=== PATIENT | female | born 1935 | race Caucasian/White ===

== ENCOUNTER 2018-03-30 09:24 | Emergency (ER) | payer MEDICARE, OTHER ==
[2018-03-30] MEDS ORDERED: Sodium Chloride 0.9% 10 ML Syringe FLUSH PRN (09:41)
[2018-03-30] MEDS ORDERED: Aspirin 81 MG Tab.Chew PO ONE (09:48)
--- NOTE | 2018-03-30 10:53 | CR ---
Chest: Portable view of the chest was obtained. Comparison: Prior chest x-ray of 01/22/16. Heart size slightly enlarged but accentuated by portable technique. Mild right basilar atelectasis is seen. Lungs are clear with no acute parenchymal change. Scoliosis and degenerative change are noted within the spine. Impression: 1. Slight right basilar atelectasis. 2. Nothing acute is appreciated on portable chest x-ray. Diagnostic code #2
--- NOTE | 2018-03-30 11:07 | EDM.PDOC ---
ED HPI GENERAL MEDICAL PROBLEM - General Chief Complaint: Chest Pain Stated Complaint: CHEST PAIN/SENT FROM [place] Time Seen by Provider: 03/30/18 09:38 Source of Information: Reports: Patient History Limitations: Reports: No Limitations - History of Present Illness INITIAL COMMENTS - FREE TEXT/NARRATIVE: The patient presents with chest pain. This started on Friday. It is a constant heaviness. Nothing makes it worse or better. She did not injure her chest. She was cleaning up trees this weekend when it started. She has no shortness of breath. She has no fever, chills, cough, chest pain, abdominal pain, nausea or vomiting. She has no history of an ND, nausea or vomiting. Onset: Gradual Duration: Day(s): Location: Reports: Chest Quality: Reports: Other (Heaviness) Severity: Moderate Improves with: Reports: None Worsens with: Reports: None Associated Symptoms: Reports: Chest Pain. Denies: Confusion, Fever/Chills, Headaches, Nausea/Vomiting, Shortness of Breath Chest Pain Score (Numeric/FACES): 7 - Related Data Allergies Allergy/AdvReac Type Severity Reaction Status Date / Time acetaminophen [From Tylenol] Allergy Nausea Verified 03/30/18 09:43 tetanus and diphtheria Allergy Cannot Verified 03/30/18 09:43 toxoids Remember [tetanus & diphtheria toxoids] Home Meds: Home Meds Aspirin [Halfprin] 81 mg PO BEDTIME 01/22/16 [History] amLODIPine Besylate [Amlodipine Besylate] 5 mg PO BEDTIME 03/30/18 [History] Past Medical History HEENT History: Reports: Impaired Vision Other HEENT History: Wears glasses Cardiovascular History: Reports: Hypertension Genitourinary History: Reports: UTI, Recurrent [employer] History: Reports: Musculoskeletal History: Reports: Arthritis - Past Surgical History GI Surgical History: Reports: Cholecystectomy Social & Family History - Tobacco Use Smoking Status *Q: Never Smoker - Caffeine Use Caffeine Use: Reports: Coffee - Recreational Drug Use Recreational Drug Use: No ED ROS GENERAL - Review of Systems Review Of Systems: See Below Constitutional: Reports: No Symptoms HEENT: Reports: No Symptoms Respiratory: Reports: No Symptoms Cardiovascular: Reports: Chest Pain. Denies: Edema Endocrine: Reports: No Symptoms GI/Abdominal: Reports: No Symptoms : Reports: No Symptoms Musculoskeletal: Reports: No Symptoms Skin: Reports: No Symptoms ED EXAM, GENERAL - Physical Exam Exam: See Below Exam Limited By: No Limitations General Appearance: Alert, No Apparent Distress Ears: Normal External Exam Nose: Normal Inspection Head: Atraumatic, Normocephalic Neck: Normal Inspection Respiratory/Chest: No Respiratory Distress, Lungs Clear, Normal Breath Sounds Cardiovascular: Regular Rate, Rhythm, No Edema, No Murmur GI/Abdominal: Soft, Non-Tender, No Organomegaly, No Mass Back Exam: Normal Inspection Extremities: Normal Inspection Neurological: Alert, Oriented, No Motor/Sensory Deficits Course - Vital Signs Last Recorded V/S: Last Vital Signs Temp 97.0 F 03/30/18 09:32 Pulse 68 03/30/18 09:32 Resp 19 03/30/18 09:32 BP 158/63 H 03/30/18 09:32 Pulse Ox 99 03/30/18 09:41 - Orders/Labs/Meds Orders: Active Orders 24 hr Category Date Time Status Cardiac Monitoring [RC] . DIRECTED Care 03/30/18 09:41 Active EKG Documentation Completion [RC] STAT Care 03/30/18 09:30 Active Oxygen Therapy [RC] PRN Care 03/30/18 09:41 Active Peripheral IV Care [RC] . DIRECTED Care 03/30/18 09:42 Active Sodium Chloride 0.9% [Saline Flush] Med 03/30/18 09:41 Active 10 ml FLUSH ASDIRECTED PRN Peripheral IV Insertion Adult [OM.PC] Stat Oth 03/30/18 09:41 Ordered Medication Orders Sodium Chloride (Saline Flush) 10 ml FLUSH ASDIRECTED PRN PRN Reason: Keep Vein Open Last Admin: 03/30/18 09:54 Dose: 10 ml Labs: Laboratory Tests 03/30/18 03/30/18 Range/Units 09:45 09:45 WBC 7.12 (3.98-10.04) K/mm3 RBC 4.34 (3.98-5.22) M/mm3 Hgb 13.9 (11.2-15.7) gm/L Hct 43.0 (34.1-44.9) % MCV 99.1 H (79.4-94.8) fl MCH 32.0 (25.6-32.2) pg MCHC 32.3 (32.2-35.5) g/dl RDW Std Deviation 48.1 H (36.4-46.3) fL Plt Count 232 (182-369) K/mm3 MPV 10.2 (9.4-12.3) fl Neut % (Auto) 62.5 (34.0-71.1) % Lymph % (Auto) 26.4 (19.3-51.7) % [place] % (Auto) 8.0 (4.7-12.5) % Eos % (Auto) 2.4 (0.7-5.8) Baso % (Auto) 0.6 (0.1-1.2) % Neut # (Auto) 4.45 (1.56-6.13) K/mm3 Lymph # (Auto) 1.88 (1.18-3.74) K/mm3 [place] # (Auto) 0.57 H (0.24-0.36) K/mm3 Eos # (Auto) 0.17 (0.04-0.36) K/mm3 Baso # (Auto) 0.04 (0.01-0.08) K/mm3 Sodium 141 (136-145) mEq/L Potassium 4.0 (3.5-5.1) mEq/L Chloride 104 (98-107) mEq/L Carbon Dioxide 28 (21-32) mEq/L Anion Gap 13.0 (5-15) BUN 17 (7-18) mg/dL Creatinine 0.9 (0.55-1.02) mg/dL Est Cr Clr Drug Dosing 35.11 mL/min Estimated GFR (MDRD) 60 (>60) mL/min BUN/Creatinine Ratio 18.9 H (14-18) Glucose 99 (83-115) mg/dL Calcium 9.0 (8.5-10.1) mg/dL Total Bilirubin 0.6 (0.2-1.0) mg/dL AST 24 (15-37) U/L ALT 19 (14-59) U/L Alkaline Phosphatase 108 (46-116) U/L Troponin I < 0.017 (0.00-0.056) ng/mL Total Protein 8.2 (6.4-8.2) g/dl Albumin 3.7 (3.4-5.0) g/dl Globulin 4.5 gm/dL Albumin/Globulin Ratio 0.8 L (1-2) Meds: Medications Generic Name Dose Route Start Last Admin Trade Name Jan PRN Reason Stop Dose Admin Sodium Chloride 10 ml 03/30/18 09:41 03/30/18 09:54 Saline Flush FLUSH 10 ml ASDIRECTED PRN Administration Keep Vein Open Discontinued Medications Generic Name Dose Route Start Last Admin Trade Name Jan PRN Reason Stop Dose Admin Aspirin 324 mg 03/30/18 09:48 03/30/18 09:53 Aspirin PO 03/30/18 09:49 324 mg ONETIME ONE Administration - Re-Assessments/Exams Free Text/Narrative Re-Assessment/Exam: 03/30/18 11:09 I ordered an EKG, CXR, and labs. Her EKG shows a NSR with no acute changes. Her CBC and CMP look good. Her troponin is negative. I feel this is chest wall pain. I will have her take some antiinflammatories and I will discharge her home. Departure - Departure Time of Disposition: 11:20 Disposition: Home, Self-Care 01 Condition: Good Clinical Impression: Chest wall pain Referrals: Loli Galan MD [Primary Care Provider] - Forms: ED Department Discharge Additional Instructions: Take your medication as prescribed. You may take some aleve if you have pain during the day. Please return if you are worse. - My Orders Last 24 Hours: My Active Orders 03/30/18 09:30 EKG Documentation Completion [RC] STAT 03/30/18 09:41 Cardiac Monitoring [RC] . DIRECTED Oxygen Therapy [RC] PRN Sodium Chloride 0.9% [Saline Flush] 10 ml FLUSH ASDIRECTED PRN Peripheral IV Insertion Adult [OM.PC] Stat 03/30/18 09:42 Peripheral IV Care [RC] . DIRECTED - Assessment/Plan Last 24 Hours: My Active Orders 03/30/18 09:30 EKG Documentation Completion [RC] STAT 03/30/18 09:41 Cardiac Monitoring [RC] . DIRECTED Oxygen Therapy [RC] PRN Sodium Chloride 0.9% [Saline Flush] 10 ml FLUSH ASDIRECTED PRN Peripheral IV Insertion Adult [OM.PC] Stat 03/30/18 09:42 Peripheral IV Care [RC] . DIRECTED
[2018-03-30 11:33] VITALS: BP 137/97
== END 2018-03-30 11:31 | disposition home or self-care (01) ==
LOC: JD.ED 09:24
DX: R07.89 Other chest pain (principal); I10 Essential (primary) hypertension; Z79.82 Long term (current) use of aspirin; Z87.440 Personal history of urinary (tract) infections; Z88.7 Allergy status to serum and vaccine
CPT/HCPCS: 36415; 71045; 80053; 84484; 85025; 93005; 99285; A9270; J7050